=== PATIENT | female | born 1950 | race Caucasian/White ===

== ENCOUNTER → 2016-10-14 16:54 | Outpatient (CLI) | payer OTHER | END | disposition home or self-care (01) | LOC: D.MAMMO 09:30 | DX: Z12.31 Encounter for screening mammogram for malignant neoplasm of breast (principal) ==

== ENCOUNTER → 2017-03-24 13:34 | Outpatient (CLI) | payer OTHER | END | disposition home or self-care (01) | LOC: D.MAMMO 08:15 | DX: R92.8 Other abnormal and inconclusive findings on diagnostic imaging of breast (principal) ==

== ENCOUNTER 2017-04-20 10:22 | Outpatient (CLI) | payer OTHER ==
[~2017-04-20] VITALS: Ht 171.4 cm; Wt 96.4 kg
[2017-04-20 10:42] VITALS: BP 138/81; Ht 171.4 cm; Wt 96.4 kg
== END 2017-04-20 11:13 | disposition home or self-care (01) ==
LOC: D.OPS 10:22
DX: M81.0 Age-related osteoporosis without current pathological fracture (principal)

== ENCOUNTER 2017-10-06 08:30 | Outpatient (CLI) | payer MEDICARE ==
[~2017-10-06] VITALS: Ht 171.4 cm; Wt 104.5 kg
[2017-10-06 09:02] VITALS: BP 125/91; Ht 171.4 cm; Wt 104.5 kg
== END 2017-10-06 09:10 | disposition home or self-care (01) ==
LOC: D.OPS 08:30
DX: N95.9 Unspecified menopausal and perimenopausal disorder (principal)

== ENCOUNTER → 2017-10-07 13:37 | Outpatient (CLI) | payer MEDICARE ==
[2017-10-06 09:02] VITALS: BMI 35.5
== END | disposition home or self-care (01) ==
LOC: D.MAMMO 10:00
DX: R92.8 Other abnormal and inconclusive findings on diagnostic imaging of breast (principal)

== ENCOUNTER 2018-04-12 09:18 | Outpatient (CLI) | payer MEDICARE ==
[~2018-04-12] VITALS: Ht 171.4 cm; Wt 102.3 kg
[2018-04-12 11:04] VITALS: BP 126/84; Ht 171.4 cm; Wt 102.3 kg
== END 2018-04-12 11:11 | disposition home or self-care (01) ==
LOC: D.OPS 09:18
DX: M81.0 Age-related osteoporosis without current pathological fracture (principal); Z01.812 Encounter for preprocedural laboratory examination

== ENCOUNTER 2018-06-22 00:28 | Emergency (ER) | payer MEDICARE ==
[~2018-06-22] VITALS: Ht 171.4 cm; Wt 96.4 kg
[2018-06-22 00:35] VITALS: Ht 171.4 cm; Wt 96.4 kg
[2018-06-22] MEDS ORDERED: LISINOPRIL2.5 MG (00:36)
[2018-06-22] MEDS ORDERED: LEVOXYL25 MCG (00:37)
[2018-06-22] MEDS ORDERED: ZESTORETIC 20-1 EACH (00:37)
[2018-06-22] MEDS ORDERED: MULTI-DAY VITAM1 TAB (00:37)
[2018-06-22] MEDS ORDERED: CALCIUM 250+D T1 TAB (00:37)
[2018-06-22 01:30] VITALS: BP 138/75
== END 2018-06-22 01:31 | disposition home or self-care (01) ==
LOC: D.ER 00:28
DX: T16.2XXA Foreign body in left ear, initial encounter (principal); X58.XXXA Exposure to other specified factors, initial encounter; Y93.89 Activity, other specified; Y92.019 Unspecified place in single-family (private) house as the place of occurrence of the external cause; I10 Essential (primary) hypertension

== ENCOUNTER 2019-04-27 08:00 | Outpatient (CLI) | payer MEDICARE ==
[2018-06-22 00:35] VITALS: BMI 32.8
[~2019-04-27 08:00] MED LIST: CALCIUM 250+D T1 TAB; LEVOXYL25 MCG; LISINOPRIL2.5 MG; MULTI-DAY VITAM1 TAB; ZESTORETIC 20-1 EACH
== END 2019-04-27 10:00 | disposition home or self-care (01) ==
LOC: D.MAMMO 08:00
PROVIDERS: ATTEND Family Medicine
DX: Z12.31 Encounter for screening mammogram for malignant neoplasm of breast (principal)